=== PATIENT | male | born 1990 | race Caucasian/White ===

== ENCOUNTER 2023-03-24 11:00 | Emergency (ER) | payer OTHER ==
[~2023-03-24] VITALS: Ht 177.8 cm; Wt 77.1 kg
[2023-03-24 11:07] VITALS: BP 149/86
== END 2023-03-24 11:45 | disposition home or self-care (01) ==
LOC: ER 11:00
DX: S93.402D Sprain of unspecified ligament of left ankle, subsequent encounter (principal); X58.XXXD Exposure to other specified factors, subsequent encounter; Y93.02 Activity, running
CPT/HCPCS: 99282